=== PATIENT | female | born 1965 | race American Indian/Alaskan Native ===

== ENCOUNTER 2017-03-27 07:59 | Outpatient (CLI) | payer BC ==
--- NOTE | 2017-03-27 11:04 | Ultrasound Report ---
RIGHT UPPER QUADRANT ABDOMINAL ULTRASOUND: 03/27/17 07:59:00 CLINICAL: Elevated liver function tests. FINDINGS: High-resolution ultrasound demonstrated a large body habitus and moderate diffuse increased echogenicity of the liver. The liver appears mildly enlarged with the right lobe extending inferior to the right kidney and measuring approximately 19 cm in length. No liver mass identified. Normal hepatic vasculature and inferior vena cava. Normally distended gallbladder with no stones. The gall bladder wall measures 2.0 mm in thickness. Normal intrahepatic and extra hepatic bile ducts. The common bile duct measures 5.5 mm diameter. The pancreas was well imaged and normal. Normal upper abdominal aorta. The right kidney is normal and measures 12.7 x 4.9 x 4.8 cm. No ascites or mass. IMPRESSION: Mild hepatomegaly and moderate hepatic steatosis. No cholelithiasis. No biliary obstruction. No signs of pancreatitis.
== END 2017-03-27 08:00 | disposition home or self-care (01) ==
LOC: SPVWC 07:59
PROVIDERS: ATTEND Internal Medicine Rheumatology
DX: K76.0 Fatty (change of) liver, not elsewhere classified (principal); R94.5 Abnormal results of liver function studies; R16.0 Hepatomegaly, not elsewhere classified; K76.89 Other specified diseases of liver
CPT/HCPCS: 76705